=== PATIENT | female | born 1965 | race Caucasian/White ===

== ENCOUNTER → 2016-03-27 | Outpatient (CLI) | payer OTHER ==
--- NOTE | 2016-03-27 15:40 | DX ---
Right Elbow 3 Views. Reason for examination: Pain following trauma. Patient injured elbow 5 weeks ago and has persistent p ain and numbness. Findings: A fracture is not identified. The bone alignment is normal. No radiopaque foreign body is s een. Impression: Negative for fracture.
== END ==
LOC: BMCIMAGING 13:28
PROVIDERS: ATTEND Internal Medicine
DX: M25.521 Pain in right elbow (principal)

== ENCOUNTER → 2017-08-30 | Outpatient (CLI) | payer OTHER | LOC: BMCIMAGING 13:39 | PROVIDERS: ATTEND Emergency Medicine | DX: M25.531 Pain in right wrist (principal) ==

== ENCOUNTER → 2017-12-01 | Outpatient (CLI) | payer OTHER | LOC: FIMAGING 10:48 | PROVIDERS: ATTEND Obstetrics & Gynecology | DX: Z13.820 Encounter for screening for osteoporosis (principal); Z78.0 Asymptomatic menopausal state ==